=== PATIENT | male | born 1955 | race American Indian/Alaskan Native ===

== ENCOUNTER 2021-05-31 06:35 | Day surgery (SDC) | payer MEDICARE ==
[2021-05-31 07:15] LABS: Basophils # (Auto) 0.1 K/mm3 (0.0-0.1); Basophils % (Auto) 0.8 % (0.0-1.8); Eosinophils # (Auto) 0.1 K/mm3 (0.0-0.4); Eosinophils % (Auto) 0.7 % (0.0-4.3); Hematocrit 44.8 % (35.5-45.6); Hemoglobin 15.1 gm/dl (11.8-15.2); Lymphocytes # (Auto) 1.8 K/mm3 (1.2-5.4); Lymphocytes % (Auto) 15.6 % (13.4-35.0); Mean Corpuscular HGB Conc 34 % (32-34); Mean Corpuscular Volume 91 fl (84-94); Monocytes # (Auto) 0.9 K/mm3 (0.0-0.8); Monocytes % (Auto) 8.1 % (0.0-7.3); Platelet Count 277 K/mm3 (140-440); Red Blood Count 4.94 M/mm3 (3.65-5.03); Red Cell Distribution Width 13.6 % (13.2-15.2)
[2021-05-31 07:26] LABS: INR 0.91 (0.87-1.13)
[2021-05-31 07:28] LABS: Blood Urea Nitrogen 10 mg/dL (9-20); Calcium 9.2 mg/dL (8.4-10.2); Hemolysis Index 3
[2021-05-31] MEDS ORDERED: ASPIRIN EC 325 MG TAB PO SCH (07:30)
[2021-05-31 07:32] LABS: BUN/Creatinine Ratio 14
[2021-05-31] MEDS ORDERED: SODIUM CHLORIDE 0.9% 500 ML 500 ML IV SCH (08:00)
[2021-05-31] MEDS ORDERED: HEPARIN/NS 5000 UNIT/500ML 1,000 ML IR ONE (08:22)
[2021-05-31] MEDS: fentaNYL 100 MCG/2 ML INJ ONE ×2 (08:40→08:54)
[2021-05-31] MEDS: MIDAZOLAM 2 MG/2 ML INJ ONE ×2 (08:40→08:54)
[2021-05-31] MEDS: LIDOCAINE (2%) 20 MG/1 ML VIAL 20 ML MDV INFILTRATI ONE ×2 (08:40→09:01)
[2021-05-31] MEDS: HEPARIN 10,000 UNITS/10 ML VIAL ONE ×2 (08:41→09:03)
[2021-05-31] MEDS: VERAPAMIL 5 MG/2 ML INJ ONE ×2 (08:41→09:03)
[2021-05-31] MEDS: NITROGLYCERIN SYRINGE 3 ML ONE ×2 (08:42→09:03)
--- NOTE | 2021-05-31 08:43 | Electrocardiograph Report ---
[facility] Test Date: 2021-05-31 Test Time: 07:21:43 Pat Name: LADY HUBBARD Department: Room: Gender: M Boiler Reliner: TREVIN : 1955 Requested By: MORTEZA WHITING Order Number: [id number] Reading MD: Morteza Whiting Measurements Intervals [place] Rate: 90 P: 72 TX: 169 QRS: 82 QRSD: 102 T: 60 QT: 358 QTc: 439 Interpretive Statements Sinus rhythm Atrial premature complex No previous ECG available for comparison Electronically Signed On 05-31-2021 8:43:13 EDT by Morteza Whiting
[2021-05-31] MEDS ORDERED: HEPARIN 10,000 UNITS/10 ML VIAL ONE (09:05)
--- NOTE | 2021-05-31 09:41 | Short Stay Summary ---
Short Stay Documentation Date of service: 05/31/21 - History H&P: obtained from office - Allergies and Medications Current Medications: Allergies No Known Allergies Allergy (Verified 02/09/16 08:20) Home Medications Medication Instructions Recorded Confirmed Last Taken Type Amlodipine Besylate 10 mg PO HS 01/12/15 05/31/21 05/30/21 History 10 mg Aspirin [Aspirin BABY CHEW TAB] 81 mg PO HS 01/12/15 05/31/21 05/30/21 History 81 mg Metoprolol Tartrate 100 mg PO BID 01/12/15 05/31/21 05/30/21 History 100 mg Pravastatin Sodium 80 mg PO QHS 01/12/15 05/31/21 05/30/21 History 80 mg Insulin Regular, Human Inj 25 unit SQ QA 02/09/16 05/31/21 05/30/21 History [NovoLIN R Inj] 25 unit Empagliflozin [Jardiance] 25 mg PO QA 05/31/21 05/31/21 05/30/21 History 25 mg ISOSORBIDE MONOnitrate [Imdur ER] 60 mg PO DAILY 05/31/21 05/31/21 05/30/21 History 60 mg Insulin Detemir [Levemir VIAL] 90 units SQ HS 05/31/21 05/31/21 05/30/21 History 90 mg Latanoprost 0.005% 1 drop INTRAOCULA HS 05/31/21 05/31/21 05/30/21 History 1 drop Timolol [Betimol] 1 drop INTRAOCULA BID 05/31/21 05/31/21 05/30/21 History 1 drop Active Medications Aspirin (Aspirin Ec 325 Mg Tab) 325 mg PO ONCE@0730 STELLA Stop: 05/31/21 17:00 Last Admin: 05/31/21 07:30 Dose: 325 mg Documented by: Sodium Chloride (Nacl 0.9% 500 Ml) 500 mls @ 50 mls/hr IV DIRECT STELLA Stop: 05/31/21 17:59 Last Admin: 05/31/21 07:57 Dose: 50 mls/hr Documented by: - Brief post op/procedure progress note Date of procedure: 05/31/21 Pre-op diagnosis: sob and cad Post-op diagnosis: same Procedure: see report Anesthesia: local Estimated blood loss: minimal Pathology: none - Disposition Condition at discharge: Good Disposition: 01 HOME / SELF CARE / HOMELESS - Discharge Diagnoses (1) CAD (coronary artery disease) Status: Chronic Qualifiers: Coronary Disease-Associated Artery/Lesion type: [place] artery Associated angina: with stable angina (2) SOB (shortness of breath) on exertion Status: Chronic (3) Diabetes mellitus Status: Chronic Qualifiers: Diabetes mellitus type: type 2 (4) Hyperlipemia Status: Chronic (5) Hypertension Status: Chronic (6) Obesity (BMI 30-39.9) Status: Chronic Short Stay Discharge Plan Activity: advance as tolerated Diet: low fat, low cholesterol, low salt, diabetic Wound: keep clean and dry Follow up with: SHANNON HOWARD MD [Primary Care Provider] - 7 Days
--- NOTE | 2021-05-31 09:52 | Cardiac Catherization Report ---
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 Procedure was done with moderate sedation started at 9:00 a.m., finished at 9:15, with 15 minutes of moderate sedation. DESCRIPTION OF PROCEDURE: Procedure was done via the right radial artery, sterile technique and local anesthesia. A 6-Persian radial sheath inserted. Left system engaged with JL3.5 catheter. Left main is large and patent, and bifurcates into medium caliber LAD proximally patent, with mild luminal irregularities. Diagonal 1 small caliber vessels patent. Distal LAD, in the distal one-third has a focal 80%-95%, proximal lesion length is 20-30 mm, but the vessel size appears to be less than 2 mm in diameter. Circumflex proximally medium caliber vessel, goes into a medium caliber OM1, patent with mild luminal irregularities. The circumflex in AV groove after OM1 has a 60% lesion focal but of less than 2 mm vessel. RCA is a large, dominant vessel, patent with mild luminal irregularities, mid 40%. PDA, PLV are small to medium caliber vessels with multiple branches are patent. LV gram done in SANJAY and ADKINS shows normal LV function, EF 55%-60%, LVEDP 24 mmHg, LV is 165, aortic is 165/79. No gradient across the aortic valve on pullback. The 5-Persian catheters all taken over guidewire. A 6-Persian radial sheath was discontinued. Radial band applied. No hematoma, no bleeding. SUMMARY: Left main patent; LAD proximal, mid patent; diagonal 1 patent, but distal one-third of the LAD has a focal 80%-95% lesion of less than 2 mm vessel. Circumflex proximal patent. OM1, medium caliber patent with mild luminal irregularities. Distal circumflex in AV groove has a 60% lesion. RCA dominant vessel, 40% mid. PDA, PLV are patent with normal LV function. Treat medically for small vessel disease and aggressive risk factor modification. Spoke with the patient and the patient's family in detail. TID: [id number] RECEIPT: [id number] VRM/SAY
[2021-05-31] MEDS ORDERED: traMADol 50 MG TAB PO PRN (10:00)
[2021-05-31] MEDS ORDERED: HYDROcodone/ACETAMINOPHEN 5-325 MG TAB PO PRN (10:00)
[2021-05-31 13:05] VITALS: BP 146/72
== END 2021-05-31 13:35 | disposition home or self-care (01) ==
LOC: CATHLABREC 06:35
PROVIDERS: ATTEND Internal Medicine
DX: R06.02 Shortness of breath (principal); I25.10 Atherosclerotic heart disease of native coronary artery without angina pectoris; E11.9 Type 2 diabetes mellitus without complications; I10 Essential (primary) hypertension; E78.00 Pure hypercholesterolemia, unspecified; E66.9 Obesity, unspecified; Z79.82 Long term (current) use of aspirin; Z79.4 Long term (current) use of insulin; Z79.899 Other long term (current) drug therapy; Z98.890 Other specified postprocedural states; Z82.49 Family history of ischemic heart disease and other diseases of the circulatory system; Z68.36 Body mass index [BMI] 36.0-36.9, adult
CPT/HCPCS: 36415; 80048; 85025; 85610; 85730; 93005; 93458; 99156; C1894; J1644; J2250; J3010; J7040; Q9967